=== PATIENT | female | born 1955 | race Caucasian/White ===

== ENCOUNTER 2021-01-28 08:06 | Outpatient (CLI) | payer OTHER, SELFPAY ==
--- NOTE | ~2021-01-28 | MM_ITS ---
EXAMINATION: MM screening sam BI w mariann HISTORY: Screening TECHNIQUE: Craniocaudal and mediolateral oblique 3-D tomosynthesis images were obtained and synthetic 2-D images were generated. CAD analysis was submitted and interpreted. COMPARISON: Comparison to multiple prior studies sequentially, with oldest reviewed study dated 09/25. BREAST PARENCHYMAL COMPOSITION: The breasts are heterogeneously dense, which may obscure small masses . FINDINGS: There is no evidence of suspicious mass, calcification, or architectural distortion to sugg est malignancy in either breast. There has been no suspicious interval change. IMPRESSION: 1. No mammographic evidence of malignancy. 2. Recommend routine screening mammography in one year. BI-RADS Category 1: Negative Reviewed, dictated and finalized at location A.
== END 2021-01-28 08:07 | disposition home or self-care (01) ==
LOC: ANHIMG 08:10
PROVIDERS: PCP Physician Assistant; Visit Provider Obstetrics & Gynecology Gynecology
DX: Z12.31 Encounter for screening mammogram for malignant neoplasm of breast (principal)
CPT/HCPCS: 77063; 77067

== ENCOUNTER 2023-06-07 07:00 | Outpatient (NON) | payer OTHER, SELFPAY | END 2023-06-07 07:01 | disposition home or self-care (01) | LOC: ANHLAB 06-08 12:52 | PROVIDERS: PCP Physician Assistant; Visit Provider Nurse Practitioner | DX: L57.0 Actinic keratosis (principal) | CPT/HCPCS: 88305 ==

== ENCOUNTER 2024-10-18 12:42 | Outpatient (CLI) | payer MEDICARE, SELFPAY ==
--- NOTE | ~2024-10-18 | MM_ITS ---
EXAMINATION: MM screening sam BI w mariann HISTORY: Screening TECHNIQUE: Craniocaudal and mediolateral oblique 3-D tomosynthesis images were obtained and synthetic 2-D images were generated. CAD analysis was submitted and interpreted. COMPARISON: Comparison to multiple prior studies sequentially, with oldest reviewed study dated 05/2017. BREAST PARENCHYMAL COMPOSITION: Not dense: There are scattered areas of fibroglandular density. FINDINGS: There are developing asymmetries in the upper outer quadrant of the left breast. The right breast is stable without evidence for malignancy. IMPRESSION: 1. Developing left breast asymmetries in the upper outer quadrant, posterior third. 2. Additional mammographic views and possible breast ultrasound are recommended. BI-RADS Category 0: Incomplete: Needs additional imaging evaluation. Reviewed, dictated and finalized at location B. EQUIPMENT SERVICE TECHNICIAN IMPRESSION: 1. Developing left breast asymmetries in the upper outer quadrant, posterior th ird. 2. Additional mammographic views and possible breast ultrasound are recommended . BI-RADS Category 0: Incomplete: Needs additional imaging evaluation.
== END 2024-10-18 12:43 | disposition home or self-care (01) ==
LOC: MICIMG 12:43
PROVIDERS: PCP Physician Assistant; Visit Provider Physician Assistant
DX: Z12.31 Encounter for screening mammogram for malignant neoplasm of breast (principal); R92.8 Other abnormal and inconclusive findings on diagnostic imaging of breast
CPT/HCPCS: 77063; 77067

== ENCOUNTER → 2024-10-23 15:31 | Outpatient (REF) | payer MEDICARE, SELFPAY ==
--- OUTSIDE RECORDS SUMMARY | 2024-10-23 16:08 | XMS_ITS | Clinical Summary ---
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 Gender Identity Not on file Sexual Orientation Not on file Plan of Treatment Health Maintenance Due Date Last Done Comments DEXA Bone Density 1955 Hepatitis C Virus (HCV) Screening 1955 TdaP Immunization 1955 Colonoscopy 2001 Colorectal Cancer Screening 2001 Cologuard 2006 Immunochemical Fecal Occult Blood 2006 Mammogram 2006 Pneumococcal Immunization (5 0+ years) (1 of 1 - PCV) 2006 Zoster Immunization (1 of 2) 2006 Influenza Immunization (#1) 2024 SARS-COV-2 Immunization ( season) 2024 Respiratory Syncytial Virus (RSV) Immunization (Adult) (1 - 1-dose 75+ series) 2031 Hepatitis B Immunization Aged Out No longer eligible based on patient's age to complete this topic Meningococcal Immunization (ACWY) Aged Out No longer eligible based on patient's age to complete this topic Rotavirus Immunization Aged Out No lo nger eligible based on patient's age to complete this topic
== END ==
LOC: ANHLAB 15:31
PROVIDERS: PCP Physician Assistant; Visit Provider Plastic Surgery
DX: D48.5 Neoplasm of uncertain behavior of skin (principal)
CPT/HCPCS: 88305

== ENCOUNTER 2024-11-15 10:49 | Outpatient (CLI) | payer MEDICARE, SELFPAY ==
--- NOTE | ~2024-11-15 | MM_ITS ---
EXAMINATION: MM diagnostic sam LT w mariann HISTORY: Left breast asymmetry TECHNIQUE: Additional 3-D tomosynthesis images of the left breast were performed and synthetic 2-D im ages were generated. CAD analysis was submitted and interpreted. COMPARISON: 10/18/2024, 01/28/2021 BREAST PARENCHYMAL COMPOSITION:Not Dense. There are scattered areas of fibroglandular density. FINDINGS: Left breast asymmetry effaces with spot compression. No persistent mass lesion or distortio n. IMPRESSION: No mammographic evidence for malignancy. BI-RADS Category 1: Negative Reviewed, dictated and finalized at location . ORY FOCUS TECHNICIAN
--- OUTSIDE RECORDS SUMMARY | 2024-11-15 12:28 | XMS_ITS | Data Portability ---
Author Organization [facility] Address [address] [address] Care Team Providers Care Armature Inspector Name Role Phone MAXIM MOJICA Primary Care Provider Unavailab le Assessment No assessment recorded. Plan of Treatment Reminders Order Date Submit Date Provider Last Modified By Organization Details Last Modified Time Details Appointments None recorded. Lab lipid panel, serum 2023 024 VILMA Tobias, [address], [place], [address], 4 09:08:25 CBC w/ auto diff 2023 024 VILMA Tobias, [address], [place], [address], 4 09:08:28 hepatic function panel, serum 2023 024 VILMA Tobias, [address], [place], [address], 4 09:08:26 BMP, serum or plasma 2023 024 VILMA Tobias, [address], [place], [address], 4 09:08:27 TSH + free T4, serum 2023 024 VILMA Tobias, [address], [place], [address], 4 09:08:23 Referral None recorded. Procedures colonoscop y procedure (PROC) - Previous Dr. Viki wu patient 2023 024 [facility], [address], [address], [place], [address], 4 17:45:24 Surgeries None recorded. Imaging MAMMO, screening, digital, bilateral 2023 024 [email or web address] [facility], [address], [place], [address], 5 14:05:08 Medication Orders None recorded. Patient TargetsNo targets recorded. Patient InstructionsNo instructions recorded. Reason for Referral None Reported. Results Created Date Observation Date Name Description Value Unit Range Abnormal Flag Note LastModifiedBy Organization Detail LastModifiedTime 08/27/2008/28/2024 TSH+F REE T4 TSH 2.080 uIU/m L 0.450- 4.500 Not Available [facility] ([facility]) [address] [place], [address], 08/28/2024 09:08:23 08/27/20 24 08/28/2024 TSH+F REE T4 T4,free(dire ct) 1.13 NG/dL 0.82-1 .77 Not Available [facility] ([facility]) [address] [place], [address], 08/28/2024 09:08:23 08/27/20 24 08/28/2024 LIPID PANEL cholesterol, total 274 mg/dL 100-19 9 above high normal Not Available [facility] ([facility]) [address] [place], [address], 08/28/2024 09:08:25 08/27/20 24 08/28/2024 LIPID PANEL triglyceride s 93 mg/dL 0-149 Not Available [facility] ([facility]) [address] [place], [address], 08/28/2024 09:08:25 08/27/20 24 08/28/2024 LIPID PANEL HDL cholesterol 84 mg/dL >39 Not Available [facility] ([facility]) [address] [place], [address], 08/28/2024 09:08:25 08/27/20 24 08/28/2024 LIPID PANEL VLDL cholesterol riddhi 16 mg/dL 5-40 Not Available [facility] ([facility]) [address] [place], [address], 08/28/2024 09:08:25 08/27/20 24 08/28/2024 LIPID PANEL LDL chol calc ([facility]) 174 mg/dL 0-99 above high normal Not Available [facility] ([facility]) [address] [place], [address], 08/28/2024 09:08:25 08/27/20 24 08/28/2024 HEPAT IC FUNCT ION PANEL (7) protein, total 7.1 g/dL 6.0-8. 5 Not Available [facility] ([facility]) [address] [place], [address], 08/28/2024 09:08:26 08/27/20 24 08/28/2024 HEPAT IC FUNCT ION PANEL (7) albumin 4.2 g/dL 3.9-4. 9 Not Available [facility] ([facility]) [address] [place], [address], 08/28/2024 09:08:26 08/27/20 24 08/28/2024 HEPAT IC FUNCT ION PANEL (7) bilirubin, total 0.3 mg/dL 0.0-1. 2 Not Available [facility] ([facility]) [address] [place], [address], 08/28/2024 09:08:26 08/27/20 24 08/28/2024 HEPAT IC FUNCT ION PANEL (7) bilirubin, direct 0.12 mg/dL 0.00-0 .40 Not Available [facility] ([facility]) [address] [facility] [place], [address], 08/28/2024 09:08:26 08/27/20 24 08/28/2024 HEPAT IC FUNCT ION PANEL (7) alkaline phosphatase 97 IU/L 44-121 Not Available [facility] ([facility]) [address] [facility] [place], [address], 08/28/2024 09:08:26 08/27/20 24 08/28/2024 HEPAT IC FUNCT ION PANEL (7) AST (SGOT) 23 IU/L 0-40 Not Available [facility] ([facility]) [address] [facility] [place], [address], 08/28/2024 09:08:26 08/27/20 24 08/28/2024 HEPAT IC FUNCT ION PANEL (7) ALT (SGPT) 17 IU/L 0-32 Not Available [facility] ([facility]) [address] [facility] [place], [address], 08/28/2024 09:08:26 08/27/20 24 08/28/2024 BMP7+ EGFR glucose 94 mg/dL 70-99 Not Available [facility] ([facility]) [address] [facility] [place], [address], 08/28/2024 09:08:27 08/27/20 24 08/28/2024 BMP7+ EGFR BUN 11 mg/dL 8-27 Not Available [facility] ([facility]) [address] [facility] [place], [address], 08/28/2024 09:08:27 08/27/20 24 08/28/2024 BMP7+ EGFR creatinine 0.71 mg/dL 0.57-1 .00 Not Available [facility] ([facility]) [address] [facility] [place], [address], 08/28/2024 09:08:27 08/27/20 24 08/28/2024 BMP7+ EGFR eGFR 93 mL/mi n/1.7 3 >59 Not Available [facility] ([facility]) [address] [facility] [place], [address], 08/28/2024 09:08:27 08/27/20 24 08/28/2024 BMP7+ EGFR sodium 141 mmol/ L 134-14 4 Not Available [facility] ([facility]) [address] [facility] [place], [address], 08/28/2024 09:08:27 08/27/20 24 08/28/2024 BMP7+ EGFR potassium 4.4 mmol/ L 3.5-5. 2 Not Available [facility] ([facility]) [address] [place], [address], 08/28/2024 09:08:27 08/27/20 24 08/28/2024 BMP7+ EGFR chloride 101 mmol/ L 96-106 Not Available [facility] ([facility]) [address] [facility] [place], [address], 08/28/2024 09:08:27 08/27/20 24 08/28/2024 BMP7+ EGFR carbon dioxide, total 26 mmol/ L 20-29 Not Available [facility] ([facility]) [address] [place], [address], 08/28/2024 09:08:27 08/27/20 24 08/28/2024 CBC WITH DIFFE RENTI AL/PL ATELE T WBC 5.6 x10e3 /uL 3.4-10 .8 Not Available [facility] ([facility]) [address] [place], [address], 08/28/2024 09:08:28 08/27/20 24 08/28/2024 CBC WITH DIFFE RENTI AL/PL ATELE T RBC 4.25 x10e6 /uL 3.77-5 .28 Not Available [facility] ([facility]) [address] [facility], [place], [address], 08/28/2024 09:08:28 08/27/20 24 08/28/2024 CBC WITH DIFFE RENTI AL/PL ATELE T hemoglobin 14.3 g/dL 11.1-1 5.9 Not Available [facility] ([facility]) [address] [facility] [place], [address], 08/28/2024 09:08:28 08/27/20 24 08/28/2024 CBC WITH DIFFE RENTI AL/PL ATELE T hematocrit 42.2 % 34.0-4 6.6 Not Available [facility] ([facility]) [address] [facility], [place], [address], 08/28/2024 09:08:28 08/27/20 24 08/28/2024 CBC WITH DIFFE RENTI AL/PL ATELE T MCV 99 fL 79-97 above high normal Not Available [facility] ([facility]) [address] [place], [address], 08/28/2024 09:08:28 08/27/20 24 08/28/2024 CBC WITH DIFFE RENTI AL/PL ATELE T MCH 33.6 pg 26.6-3 3.0 above high normal Not Available [facility] ([facility]) [address] [place], [address], 08/28/2024 09:08:28 08/27/20 24 08/28/2024 CBC WITH DIFFE RENTI AL/PL ATELE T MCHC 33.9 g/dL 31.5-3 5.7 Not Available [facility] ([facility]) [address] [place], [address], 08/28/2024 09:08:28 08/27/20 24 08/28/2024 CBC WITH DIFFE RENTI AL/PL ATELE T RDW 11.2 % 11.7-1 5.4 below low normal Not Available [facility] ([facility]) [address] [facility], [place], [address], 08/28/2024 09:08:28 08/27/20 24 08/28/2024 CBC WITH DIFFE RENTI AL/PL ATELE T platelets 290 x10e3 /uL 150-45 0 Not Available [facility] ([facility]) [address] [facility], [place], [address], 08/28/2024 09:08:28 08/27/20 24 08/28/2024 CBC WITH DIFFE RENTI AL/PL ATELE T neutrophils 42 % notest ab. Not Available [facility] ([facility]) [address] [facility], [place], [address], 08/28/2024 09:08:28 08/27/20 24 08/28/2024 CBC WITH DIFFE RENTI AL/PL ATELE T lymphs 44 % notest ab. Not Available [facility] ([facility]) [address] [facility], [place], [address], 08/28/2024 09:08:28 08/27/20 24 08/28/2024 CBC WITH DIFFE RENTI AL/PL ATELE T monocytes 11 % notest ab. Not Available [facility] ([facility]) [address] [facility], [place], [address], 08/28/2024 09:08:28 08/27/20 24 08/28/2024 CBC WITH DIFFE RENTI AL/PL ATELE T eos 3 % notest ab. Not Available [facility] ([facility]) [address] [place], [address], 08/28/2024 09:08:28 08/27/20 24 08/28/2024 CBC WITH DIFFE RENTI AL/PL ATELE T basos 0 % notest ab. Not Available [facility] ([facility]) [address] [place], [address], 08/28/2024 09:08:28 08/27/20 24 08/28/2024 CBC WITH DIFFE RENTI AL/PL ATELE T neutrophils (absolute) 2.4 x10e3 /uL 1.4-7. 0 Not Available [facility] ([facility]) [address] [facility], [place], [address], 08/28/2024 09:08:28 08/27/20 24 08/28/2024 CBC WITH DIFFE RENTI AL/PL ATELE T lymphs (absolute) 2.5 x10e3 /uL 0.7-3. 1 Not Available [facility] ([facility]) [address] [place], [address], 08/28/2024 09:08:28 08/27/20 24 08/28/2024 CBC WITH DIFFE RENTI AL/PL ATELE T monocytes(ab solute) 0.6 x10e3 /uL 0.1-0. 9 Not Available [facility] ([facility]) [address] [place], [address], 08/28/2024 09:08:28 08/27/20 24 08/28/2024 CBC WITH DIFFE RENTI AL/PL ATELE T eos (absolute) 0.2 x10e3 /uL 0.0-0. 4 Not Available [facility] ([facility]) [address] [place], [address], 08/28/2024 09:08:28 08/27/20 24 08/28/2024 CBC WITH DIFFE RENTI AL/PL ATELE T baso (absolute) 0.0 x10e3 /uL 0.0-0. 2 Not Available [facility] ([facility]) [address] [place], [address], 08/28/2024 09:08:28 08/27/20 24 08/28/2024 CBC WITH DIFFE RENTI AL/PL ATELE T immature granulocytes 0 % notest ab. Not Available [facility] ([facility]) [address] [facility], [place], [address], 08/28/2024 09:08:28 08/27/20 24 08/28/2024 CBC WITH DIFFE RENTI AL/PL ATELE T immature grans (abs) 0.0 x10e3 /uL 0.0-0. 1 Not Available [facility] ([facility]) [address] [facility], [place], [address], 08/28/2024 09:08:28 10/18/19 25 10/18/2024 MAMMO , scree lu, digit al, bilat eral No observ ation record ed. [facility] [address], [place], [address], 10/23/2024 17:10:05 11/16/19 25 11/15/2024 imagi ng/di agnos tic resul t No observ ation record ed. [facility] [address], [place], [address], 11/15/2024 13:22:45 Result Notes None recorded. Problems Name Problem SNOMED Code Status Onset Date Resolution Date Notes Provider Name and Address Organization Details Recorded Time Body mass index 20-24 - normal 274849677 Active 024 Gunner Jackson MA null, [place] [facility] [place] 4 11:47:26 History of polyp of colon 839767052 Active 024 EVE Carlin Attn: Accounting ,[address] [facility] [address], [place], [address] , [facility] 4 12:13:42 Problem Notes None recorded. Procedures Surgical History Date Name Laterality Status Provider Name and Address Organization Details Recorded Time Joint Replacement completed Gunner Jackson [place] [facility] [place] 08/20/2024 12:45:57 Imaging Results Imaging Date Name Status LastModified by Organiz ation Details LastModified Time 10/18/2024 MAMMO, screening, digital, bilateral completed [facility] [address], [place], [address], 10/23/2024 17:10:05 11/15/2024 imaging/diagno stic result active [facility] [address], [place], [address], 11/15/2024 13:22:45 Procedure Notes None recorded. Medical Equipment None Reported. Allergies No known drug allergies Medications Name Sig Start Date Stop Date Status Note LastModified by Organization Details LastModified Time rosuvastatin 10 mg tablet TAKE 1 TABLET BY MOUTH EVERY DAY IN THE EVENING active Not Available Not Available No t Available Multi Vitamin active Not Available Not Available Not Available Vitals Date Recorded Body weight Respiratory rate Body mass index (BMI) Body height Oxygen saturation Oxygen saturation in Arterial blood by Pulse oximetry Heart rate Systolic blood pressure Diastolic blood pressure Provider Name and Address Organization Details Last Updated DateTime 4 57656.9 3 g 18 /min 23.3 kg/m2 165.1 cm 97 % 97 % 68 /min 132 mm[Hg] 82 mm[Hg] Gunner Jackson MA [facility] 11:48:59 Date Recorded Systolic blood pressure Diastolic blood pressure Provider Name and Address Organization Details Last Updated DateTime 08/20/2024 140 mm[Hg] 90 mm[Hg] EVE Carlin Attn: Accounting,[address] [place], [address], [facility] 08/20/2024 12:19:07 Social History Question Answer Notes LastModified by Organizat ion Details LastModified Time Tobacco Smoking Status Former Smoker Gunner Jackson MA null, [facility] 08/20/2024 12:46:41 Do You Have An Advance Directive? No Will Information not available 08/20/2024 What Is Your Level Of Alcohol Consumption? Occasional Wine Information not available 08/20/2024 Are You Blind Or Do You Have Difficulty Seeing? No Glasses Information not available 08/20/2024 What Is Your Level Of Caffeine Consumption? Occasional Coffee Information not available 08/20/2024 In The 14 Days Before Symptom Onset, Have You Had Close Contact With A Laboratory-confir med COVID-19 While That Case Was Ill? No Information not available 08/20/2024 In The 14 Days Before Symptom Onset, Have You Had Close Contact With A Person Who Is Under Investigation For COVID-19 While That Person Was Ill? No Information not available 08/20/2024 Have You Been To An Area Known To Be High Risk For COVID-19? No Information not available 08/20/2024 Are You Deaf Or Do You Have Serious Difficulty Hearing? No Information not available 08/20/2024 What Type Of Diet Are You Following? REGULAR Information not available 08/20/2024 Are There Any Guns Present In Your Home? No Information not available 08/20/2024 What Was The Date Of Your Most Recent Tobacco Screening? 08/20/2024 Information not available 08/20/2024 What Is Your Current Pack Years? 10-19packyears Information not available 08/20/2024 What Is Your Relationship Status? Information not available 08/20/2024 Do You Use Your Seat Belt Or Car Seat Routinely? Yes Information not available 08/20/2024 Do You Have Smoke And Carbon Monoxide Detectors In Your Home? Yes Information not available 08/20/2024 How Much Tobacco Do You Smoke? No Information not available 08/20/2024 Do You Feel Stressed (tense, Restless, Nervous, Or Anxious, Or Unable To Sleep At Night)? [id number] Information not available 08/20/2024 Do You Use Any Illicit Or Recreational Drugs? No Information not available 08/20/2024 Do You Use Sunscreen Routinely? Yes Information not available 08/20/2024 Has Tobacco Cessation Counseling Been Provided? No Information not available 08/20/2024 Do You Or Have You Ever Used Any Other Forms Of Tobacco Or Nicotine? No Information not available 08/20/2024 Sex: Female Functional Status Question Answer Note LastModified by Organizat ion Details LastModified Time Are you able to care for yourself? Yes Information not available 08/20/2024 What is your exercise level? Occasional at home/walki ng Information not available 08/20/2024 Mental Status None recorded. Family History Relationship Description Onset Age of this Age Resolved Age Notes LastModified by Organization Details LastModified Time Mother Family history of breast cancer tcarterma Not available 2023 12:46:09 Brother Heart disease tcarterma Not available 2023 12:46:14 Father Hypertensive disorder tcarterma Not available 2023 12:46:20 Father Hypercholest erolemia tcarterma Not available 2023 12:46:25 Medical History Condition Response Coronary Artery Disease N Other N High Blood Pressure N Atrial Fibrillation N Kidney or Bladder Problems N Thyroid Problems N GI Problems N Depression N COPD N Blood Clots N Have you had a mammogram in the last yea r? N Skin Problems N Anemia N Heart Attack (MT) N Anxiety Disorder N Diabetes N Muscle, Joint, or Bone Problems N Seizures/Epilepsy N Have you had a colonoscopy in the last 1 0 years? N Acid Reflux (GERD) N Cancer N Stroke N Asthma N Allergies N Have you had a PSA blood test in the las t year? N High Cholesterol N Hepatitis N Liver Disease N Headaches N Heart Failure N Osteoporosis N Gynecological HistoryNo gynecological history recorded. Obstetrics History GPAL:G 0 P 0 0 0 0 Past Encounters Encounter ID Performer Location Encounter Start Date Encounter Closed Date Diagnosis/Indication Diagnosis SNOMED-CT Code Diagnosis ICD10 Code Diagnosis Note [id number] EVE Carlin [facility] [place], [place] [address] [place] [address] 08/20/2024 11:24:47 08/20/2024 13:02:47 Body mass index 20-24 - normal 051778745 Z68.23 BMI is 23.3 Viral uppe r respiratory tract infection 007755767 J06.9 Supportive care no new orders patient's exam is stable without acute concern Adult [facility] th examination 462642491 Z00.01 Annual wellness exam completed Cholesterol screening 27 4302793 Z13.220 Fasting lipid panel is due Long-term drug therapy 574310546 Z79.891 All routine lab work is ordered fasting Screening mammography 24 884857 Z12.31 Annual mammogram due History of polyp of colon 593405754 Z86.0100 Order for colonoscop y given history of colon polyp and due for follow-up scope. Health Concerns Section Related Observation LastModified by Organization Detai ls LastModified Time None Recorded Concern Status LastModified by Organization Details LastModified Time None Recorded Advance Directives Directive N: will Payers Encounter Date Sequence Insurance Name Policy Number Policy Nash Covered Member ID Nash Member ID Guarantor Name 08/20/2024 1 [employer] - [employer] (MEDICARE REPLACEMENT/ ADVANTAGE - HMO) [id number] Idania Medrano [id number] Idania Medrano Notes Date Note Type Note Provider Name and Address Organization Details Recorded Time 08/20/2024 text/html Patient is here for her annual wellness exam reestablishing with healthcare provider at [facility] office. She also happens to have some residual upper respiratory symptoms from a recent virus that she is improving from. She is interested in updated labs as well as a mammogram and she is due for a colonoscopy. She has a history of colon polyp. EVE Carlin Attn: Accounting,[address] [facility], [place], [address], [facility] 09/07/2024 21:57:06 OBGyn Episode No OBEpisode recorded.
--- OUTSIDE RECORDS SUMMARY | 2024-11-15 12:28 | XMS_ITS | Clinical Summary ---
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
== END 2024-11-15 10:50 | disposition home or self-care (01) ==
PROVIDERS: PCP Physician Assistant; Visit Provider Physician Assistant
DX: R92.8 Other abnormal and inconclusive findings on diagnostic imaging of breast (principal)
CPT/HCPCS: 77061; 77065; G0279

== ENCOUNTER 2025-01-28 06:22 | Day surgery (SDC) | payer MEDICARE, SELFPAY ==
[2024-08-23 14:02] VITALS: BMI 24.0
[2025-01-10 09:40] VITALS: BMI 22.4
--- OUTSIDE RECORDS SUMMARY | 2025-01-28 06:26 | XMS_ITS | Clinical Summary ---
Author Organization 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
--- OUTSIDE RECORDS SUMMARY | 2025-01-28 06:26 | XMS_ITS | Data Portability ---
[facility] Address [address] [facility] [place] [address] Care Team Providers Care Capacity Planning Analyst Name Role Phone MAXIM MOJICA Primary Care Provider Unavailab le Assessment No assessment recorded. Plan of Treatment Reminders Order Date Submit Date Provider Last Modified By Organization Details Last Modified Time Details Appointments None recorded. Lab lipid panel, serum 2023 024 VILMA Tobias, [address], [place], [address], 4 09:08:25 CBC w/ auto diff 2023 024 VILMA Tobias, [address], [place], [address], 4 09:08:28 hepatic function panel, serum 2023 024 VILMA Tobias, [address], [place], [address], 4 09:08:26 BMP, serum or plasma 2023 024 VILMA Tobias, [address], [place], [address], 4 09:08:27 TSH + free T4, serum 2023 024 VILMA Tobias, [address], [place], [address], 4 09:08:23 Referral None recorded. Procedures colonoscopy procedure (PROC) - Previous Dr. Carvalho patient 2023 024 [facility], [address], [address], [place], [address], 5 04:07:01 Surgeries None recorded. Imaging MAMMO, screening, digital, bilateral 2023 024 [email or web address] [facility], [address], [place], [address], 5 14:05:08 Medication Orders None recorded. Patient TargetsNo targets recorded. Patient InstructionsNo instructions recorded. Reason for Referral None Reported. Results Created Date Observation Date Name Description Value Unit Range Abnormal Flag Note LastModifiedBy Organization Detail LastModifiedTime 08/27/2008/28/2024 TSH+F REE T4 TSH 2.080 uIU/m L 0.450- 4.500 Not Available [facility] ([facility]) [address] [place], [address], 08/28/2024 09:08:23 08/27/20 24 08/28/2024 TSH+F REE T4 T4,free(dire ct) 1.13 NG/dL 0.82-1 .77 Not Available [facility] ([facility]) [address] [place], [address], 08/28/2024 09:08:23 08/27/20 24 08/28/2024 LIPID PANEL cholesterol, total 274 mg/dL 100-19 9 above high normal Not Available [facility] ([facility]) [address] [place], [address], 08/28/2024 09:08:25 08/27/20 24 08/28/2024 LIPID PANEL triglyceride s 93 mg/dL 0-149 Not Available [facility] ([facility]) [address] [place], [address], 08/28/2024 09:08:25 08/27/20 24 08/28/2024 LIPID PANEL HDL cholesterol 84 mg/dL >39 Not Available [facility] ([facility]) [address] [place], [address], 08/28/2024 09:08:25 08/27/20 24 08/28/2024 LIPID PANEL VLDL cholesterol riddhi 16 mg/dL 5-40 Not Available [facility] ([facility]) [address] [place], [address], 08/28/2024 09:08:25 08/27/20 24 08/28/2024 LIPID PANEL LDL chol calc ([facility]) 174 mg/dL 0-99 above high normal Not Available [facility] ([facility]) [address] [place], [address], 08/28/2024 09:08:25 08/27/20 24 08/28/2024 HEPAT IC FUNCT ION PANEL (7) protein, total 7.1 g/dL 6.0-8. 5 Not Available [facility] ([facility]) [address] [place], [address], 08/28/2024 09:08:26 08/27/20 24 08/28/2024 HEPAT IC FUNCT ION PANEL (7) albumin 4.2 g/dL 3.9-4. 9 Not Available [facility] ([facility]) [address] [place], [address], 08/28/2024 09:08:26 08/27/20 24 08/28/2024 HEPAT IC FUNCT ION PANEL (7) bilirubin, total 0.3 mg/dL 0.0-1. 2 Not Available [facility] ([facility]) [address] [place], [address], 08/28/2024 09:08:26 08/27/20 24 08/28/2024 HEPAT IC FUNCT ION PANEL (7) bilirubin, direct 0.12 mg/dL 0.00-0 .40 Not Available [facility] ([facility]) [address] [facility], [address], 08/28/2024 09:08:26 08/27/20 24 08/28/2024 HEPAT IC FUNCT ION PANEL (7) alkaline phosphatase 97 IU/L 44-121 Not Available [facility] ([facility]) [address] [place], [address], 08/28/2024 09:08:26 08/27/20 24 08/28/2024 HEPAT IC FUNCT ION PANEL (7) AST (SGOT) 23 IU/L 0-40 Not Available [facility] ([facility]) [address] [facility], [address], 08/28/2024 09:08:26 08/27/20 24 08/28/2024 HEPAT IC FUNCT ION PANEL (7) ALT (SGPT) 17 IU/L 0-32 Not Available [facility] ([facility]) [address] [place], [address], 08/28/2024 09:08:26 08/27/20 24 08/28/2024 BMP7+ EGFR glucose 94 mg/dL 70-99 Not Available [facility] ([facility]) [address] [place], [address], 08/28/2024 09:08:27 08/27/20 24 08/28/2024 BMP7+ EGFR BUN 11 mg/dL 8-27 Not Available [facility] ([facility]) [address] [place], [address], 08/28/2024 09:08:27 08/27/20 24 08/28/2024 BMP7+ EGFR creatinine 0.71 mg/dL 0.57-1 .00 Not Available [facility] ([facility]) [address] [place], [address], 08/28/2024 09:08:27 08/27/20 24 08/28/2024 BMP7+ EGFR eGFR 93 mL/mi n/1.7 3 >59 Not Available [facility] ([facility]) [address] [facility], [place], [address], 08/28/2024 09:08:27 08/27/20 24 08/28/2024 BMP7+ EGFR sodium 141 mmol/ L 134-14 4 Not Available [facility] ([facility]) [address] [facility], [place], [address], 08/28/2024 09:08:27 08/27/20 24 08/28/2024 BMP7+ EGFR potassium 4.4 mmol/ L 3.5-5. 2 Not Available [facility] ([facility]) [address] [facility], [place], [address], 08/28/2024 09:08:27 08/27/20 24 08/28/2024 BMP7+ EGFR chloride 101 mmol/ L 96-106 Not Available [facility] ([facility]) [address] [facility], [place], [address], 08/28/2024 09:08:27 08/27/20 24 08/28/2024 BMP7+ EGFR carbon dioxide, total 26 mmol/ L 20-29 Not Available [facility] ([facility]) [address] [facility], [place], [address], 08/28/2024 09:08:27 08/27/20 24 08/28/2024 CBC WITH DIFFE RENTI AL/PL ATELE T WBC 5.6 x10e3 /uL 3.4-10 .8 Not Available [facility] ([facility]) [address] [facility], [place], [address], 08/28/2024 09:08:28 08/27/20 24 08/28/2024 CBC WITH DIFFE RENTI AL/PL ATELE T RBC 4.25 x10e6 /uL 3.77-5 .28 Not Available [facility] ([facility]) [address] [facility], [place], [address], 08/28/2024 09:08:28 08/27/20 24 08/28/2024 CBC WITH DIFFE RENTI AL/PL ATELE T hemoglobin 14.3 g/dL 11.1-1 5.9 Not Available [facility] ([facility]) [address] [facility], [place], [address], 08/28/2024 09:08:28 08/27/20 24 08/28/2024 CBC WITH DIFFE RENTI AL/PL ATELE T hematocrit 42.2 % 34.0-4 6.6 Not Available [facility] ([facility]) [address] [facility], [place], [address], 08/28/2024 09:08:28 08/27/20 24 08/28/2024 CBC WITH DIFFE RENTI AL/PL ATELE T MCV 99 fL 79-97 above high normal Not Available [facility] ([facility]) [address] [place], [address], 08/28/2024 09:08:28 08/27/20 24 08/28/2024 CBC WITH DIFFE RENTI AL/PL ATELE T MCH 33.6 pg 26.6-3 3.0 above high normal Not Available [facility] ([facility]) [address] [place], [address], 08/28/2024 09:08:28 08/27/20 24 08/28/2024 CBC WITH DIFFE RENTI AL/PL ATELE T MCHC 33.9 g/dL 31.5-3 5.7 Not Available [facility] ([facility]) [address] [place], [address], 08/28/2024 09:08:28 08/27/20 24 08/28/2024 CBC WITH DIFFE RENTI AL/PL ATELE T RDW 11.2 % 11.7-1 5.4 below low normal Not Available [facility] ([facility]) [address] [facility], [place], [address], 08/28/2024 09:08:28 08/27/20 24 08/28/2024 CBC WITH DIFFE RENTI AL/PL ATELE T platelets 290 x10e3 /uL 150-45 0 Not Available [facility] ([facility]) [address] [facility], [place], [address], 08/28/2024 09:08:28 08/27/20 24 08/28/2024 CBC WITH DIFFE RENTI AL/PL ATELE T neutrophils 42 % notest ab. Not Available [facility] ([facility]) [address] [facility], [place], [address], 08/28/2024 09:08:28 08/27/20 24 08/28/2024 CBC WITH DIFFE RENTI AL/PL ATELE T lymphs 44 % notest ab. Not Available [facility] ([facility]) [address] [facility], [place], [address], 08/28/2024 09:08:28 08/27/20 24 08/28/2024 CBC WITH DIFFE RENTI AL/PL ATELE T monocytes 11 % notest ab. Not Available [facility] ([facility]) [address] [facility], [place], [address], 08/28/2024 09:08:28 08/27/20 24 08/28/2024 CBC WITH DIFFE RENTI AL/PL ATELE T eos 3 % notest ab. Not Available [facility] ([facility]) [address] [facility], [place], [address], 08/28/2024 09:08:28 08/27/20 24 08/28/2024 CBC WITH DIFFE RENTI AL/PL ATELE T basos 0 % notest ab. Not Available [facility] ([facility]) [address] [facility], [place], [address], 08/28/2024 09:08:28 08/27/20 24 08/28/2024 CBC WITH DIFFE RENTI AL/PL ATELE T neutrophils (absolute) 2.4 x10e3 /uL 1.4-7. 0 Not Available [facility] ([facility]) [address] [facility], [place], [address], 08/28/2024 09:08:28 08/27/20 24 08/28/2024 CBC WITH DIFFE RENTI AL/PL ATELE T lymphs (absolute) 2.5 x10e3 /uL 0.7-3. 1 Not Available [facility] ([facility]) [address] [place], [address], 08/28/2024 09:08:28 08/27/20 24 08/28/2024 CBC WITH DIFFE RENTI AL/PL ATELE T monocytes(ab solute) 0.6 x10e3 /uL 0.1-0. 9 Not Available [facility] ([facility]) [address] [place], [address], 08/28/2024 09:08:28 08/27/20 24 08/28/2024 CBC WITH DIFFE RENTI AL/PL ATELE T eos (absolute) 0.2 x10e3 /uL 0.0-0. 4 Not Available [facility] ([facility]) [address] [place], [address], 08/28/2024 09:08:28 08/27/20 24 08/28/2024 CBC WITH DIFFE RENTI AL/PL ATELE T baso (absolute) 0.0 x10e3 /uL 0.0-0. 2 Not Available [facility] ([facility]) [address] [place], [address], 08/28/2024 09:08:28 08/27/20 24 08/28/2024 CBC WITH DIFFE RENTI AL/PL ATELE T immature granulocytes 0 % notest ab. Not Available [facility] ([facility]) [address] [facility], [place], [address], 08/28/2024 09:08:28 08/27/20 24 08/28/2024 CBC WITH DIFFE RENTI AL/PL ATELE T immature grans (abs) 0.0 x10e3 /uL 0.0-0. 1 Not Available [facility] ([facility]) [address] [facility], [place], [address], 08/28/2024 09:08:28 12/19/19 25 12/19/2024 HEPAT IC FUNCT ION PANEL (7) protein, total 7.5 g/dL 6.0-8. 5 Not Available [facility] ([facility]) [address] [facility], [place], [address], 12/19/2024 07:12:59 12/19/19 25 12/19/2024 HEPAT IC FUNCT ION PANEL (7) albumin 4.5 g/dL 3.9-4. 9 Not Available [facility] ([facility]) [address] [place], [address], 12/19/2024 07:12:59 12/19/19 25 12/19/2024 HEPAT IC FUNCT ION PANEL (7) bilirubin, total 0.5 mg/dL 0.0-1. 2 Not Available [facility] ([facility]) [address] [place], [address], 12/19/2024 07:12:59 12/19/19 25 12/19/2024 HEPAT IC FUNCT ION PANEL (7) bilirubin, direct 0.16 mg/dL 0.00-0 .40 Not Available [facility] ([facility]) [address] [facility], [place], [address], 12/19/2024 07:12:59 12/19/19 25 12/19/2024 HEPAT IC FUNCT ION PANEL (7) alkaline phosphatase 88 IU/L 44-121 Not Available [facility] ([facility]) [address] [place], [address], 12/19/2024 07:12:59 12/19/19 25 12/19/2024 HEPAT IC FUNCT ION PANEL (7) AST (SGOT) 23 IU/L 0-40 Not Available [facility] ([facility]) [address] [place], [address], 12/19/2024 07:12:59 12/19/19 25 12/19/2024 HEPAT IC FUNCT ION PANEL (7) ALT (SGPT) 17 IU/L 0-32 Not Available [facility] ([facility]) [address] [place], [address], 12/19/2024 07:12:59 12/19/19 25 12/19/2024 LIPID CASCA DE cholesterol, total 239 mg/dL 100-19 9 above high normal Not Available [facility] ([facility]) [address] [place], [address], 12/19/2024 07:13:00 12/19/19 25 12/19/2024 LIPID CASCA DE HDL cholesterol 84 mg/dL >39 Not Available [facility] ([facility]) [address] [place], [address], 12/19/2024 07:13:00 12/19/19 25 12/19/2024 LIPID CASCA DE LDL/HDL ratio 1.6 ratio 0.0-3. 2 LDL/H DL Ratio Men Women 1/2 Avg.R isk 1.0 1.5 Avg.R isk 3.6 3.2 2X Avg.R isk 6.2 5.0 3X Avg.R isk 8.0 6.1 Not Available [facility] ([facility]) [address] [place], [address], 12/19/2024 07:13:00 12/19/19 25 12/19/2024 LIPID CASCA DE non-HDL cholesterol 155 mg/dL 0-129 above high normal Not Available [facility] ([facility]) [address] [facility], [place], [address], 12/19/2024 07:13:00 12/19/19 25 12/19/2024 LIPID CASCA DE triglyceride s 109 mg/dL 0-149 Not Available [facility] ([facility]) [address] [facility], [place], [address], 12/19/2024 07:13:00 12/19/19 25 12/19/2024 LIPID CASCA DE LDL chol calc ([facility]) 136 mg/dL 0-99 above high normal Not Available [facility] ([facility]) [address] [facility], [place], [address], 12/19/2024 07:13:00 10/18/19 25 10/18/2024 MAMMO , scree lu, digit al, bilat eral No observ ation record ed. [facility] [address], [place], [address], 10/23/2024 17:10:05 11/16/19 25 11/15/2024 MAMMO , diagn ostic , unila teral No observ ation record ed. [facility] [address], [place], [address], 11/19/2024 17:17:09 Result Notes None recorded. Problems Name Problem SNOMED Code Status Onset Date Resolution Date Notes Provider Name and Address Organization Details Recorded Time Body mass index 20-24 - normal 667693014 Active 024 Gunner Jackson MA [facility], [place] - [facility] 4 11:47:26 History of polyp of colon 079153984 Active 024 EVE Carlin Attn: Accounting ,[address] [facility], [place], [address] , [facility] - [facility] 4 12:13:42 Problem Notes None recorded. Procedures Surgical History Date Name Laterality Status Provider Name and Address Organization Details Recorded Time Joint Replacement completed Gunner Jackson MA [facility] 08/20/2024 12:45:57 Imaging Results Imaging Date Name Status LastModified by Organiz ation Details LastModified Time 10/18/2024 MAMMO, screening, digital, bilateral completed [facility] [address], [place], [address], 10/23/2024 17:10:05 11/15/2024 MAMMO, diagnostic, unilateral completed [facility] [address], [place], [address], 11/19/2024 17:17:09 Procedure Notes None recorded. Medical Equipment None [...] Address Organization Details Last Updated DateTime 4 04106.9 3 g 18 /min 23.3 kg/m2 165.1 cm 97 % 97 % 68 /min 132 mm[Hg] 82 mm[Hg] Gunner Jackson MA [facility] 11:48:59 Date Recorded Systolic blood pressure Diastolic blood pressure Provider Name and Address Organization Details Last Updated DateTime 08/20/2024 140 mm[Hg] 90 mm[Hg] EVE Carlin Attn: Accounting,[address] [facility], [place], [address], [facility] 08/20/2024 12:19:07 Social History Question Answer Notes LastModified by Organizat ion Details LastModified Time Tobacco Smoking Status Former Smoker Gunner Jackson MA null, [facility] 08/20/2024 12:46:41 Do You Have An Advance Directive? No Will Information not available 08/20/2024 Are You Blind [...] Been Provided? No Information not available 08/20/2024 Sex: Female Functional Status Question Answer Note LastModified by Organizat ion Details LastModified Time Do you use any illicit or recreational drugs? No Information not available 08/20/2024 Do you or have you ever used any other forms of tobacco or nicotine? No Information not available 08/20/2024 What is your level of alcohol consumption? Occasional wine Information not available 08/20/2024 Are you able to care for yourself? Yes Information not available 08/20/2024 What is your exercise level? Occasional at home/walk ing Information not available 08/20/2024 Mental Status Question Answer Note LastModified by Organization D etails LastModified Time Do you feel stressed (tense, restless, nervous, or anxious, or unable to sleep at night)? [id number] Information not available 08/20/2024 Family History Relationship Description Onset Age of this Age Resolved Age Notes LastModified by Organization Details LastModified Time Mother Family history of breast cancer tcarterma Not available 2023 12:46:09 Brother Heart disease tcarterma Not available 2023 12:46:14 Father Hypertensive disorder tcarterma Not available 2023 12:46:20 Father Hypercholest erolemia tcarterma Not available 2023 12:46:25 Medical History Condition Response Coronary Artery Disease N Other N Atrial Fibrillation N High Blood Pressure N Kidney or Bladder Problems N Thyroid Problems N GI Problems N Depression N COPD N Blood Clots N Have you had a mammogram in the last yea r? N Skin Problems N Anemia N Heart Attack ([place]) N Anxiety Disorder N Diabetes N Muscle, [...] SNOMED-CT Code Diagnosis ICD10 Code Diagnosis Note [id number] Benjamin Mistry MD [facility] Shahram Archuleta [address] [place] [address] 08/20/2024 11:24:47 08/20/2024 13:02:47 Body mass index 20-24 - normal 694126789 Z68.23 BMI is 23.3 Viral uppe r respiratory tract infection 458330022 J06.9 Supportive care no new orders patient's exam is stable without acute concern Adult heal th examination 192675508 Z00.01 Annual wellness exam completed Cholesterol screening 27 8915441 Z13.220 Fasting lipid panel is due Long-term drug therapy 594765305 Z79.891 All routine lab work is ordered fasting Screening mammography 24 664175 Z12.31 Annual mammogram due History of polyp of colon 850545105 Z86.0100 Order for colonoscop y given history [...] - [employer] (MEDICARE REPLACEMENT/ ADVANTAGE - HMO) [id number] Idania Medrano [id number] Idania Medrano Notes Date Note Type Note Provider Name and Address Organization Details Recorded Time 08/20/2024 text/html Patient is here for her annual wellness exam reestablishing with healthcare provider at new office. She also happens to have some residual upper respiratory symptoms from a recent virus that she is improving from. She is interested in updated labs as well as a mammogram and she is due for a colonoscopy. She has a history of colon polyp. EVE Carlin Attn: Accounting,[address] [facility], [place], [address], [facility] 09/07/2024 21:57:06 OBGyn Episode No OBEpisode recorded.
[2025-01-28 06:40] VITALS: BMI 22.8
[2025-01-28 06:42] VITALS: BP 147/109; PULSE 73; RESP 18; TEMP 36.6; O2SAT 98
--- NOTE | 2025-01-28 06:55 | P.PNAN_ITS ---
Anes - Initial Pre Proc Eval Procedure: Operation Date: 01/28/25 08:00 Proposed Procedures p Diagnostic Colonoscopy - Yousif Arellano MD Date/Time: 01/28/25 06:55 Surgeon: Yousif Arellano MD Pre Op Diagnosis: HX of Colon Polyps Patient Data Age: 69 Gender: F Height: 1.65 m Weight: 62.2 kg Last Vital Signs Temp 36.6 C 01/28/25 06:42 Pulse 73 01/28/25 06:42 Resp 18 01/28/25 06:42 BP 147/109 H 01/28/25 06:42 Pulse Ox 98 01/28/25 06:42 O2 Del Method Room Air 01/28/25 06:42 Allergies Allergy/AdvReac Type Severity Reaction Status Date / Time No Known Allergies Allergy Verified 01/28/25 06:32 Home Medications Medication Instructions Recorded Confirmed Type rosuvastatin 10 mg tablet 10 mg PO HS 01/10/25 01/28/25 History Patient hx anesthesia problems: none Family hx anesthesia problems: none Results Review: All pre-operative results and documents have been reviewed as part of the pre-operative evaluation. [facility] Past Medical History Medical History (Updated 01/28/25 @ 07:08 by Luis Peters DO) Hyperlipidemia Surgical History Surgical History History of hip replacement 10/2015 Social History Social History Smoking status: Never smoker Alcohol intake: current Substance use: never Substance use type: does not use Anes - Eval Final PreProcedure Day of Procedure 01/28/25 06:55 Patient weight: normal Heart: regular rate and rhythm Lungs: clear to auscultation and normal air movement Airway: Mallampati scale class II Neurological: alert and oriented Last oral intake: >/= 8 hours ASA classification: II Emergent: no Anesthetic plan: proceed Anesthesia type and monitoring: general GIVS and standard monitoring Results Review: All pre-operative results and documents have been reviewed as part of the pre- operative evaluation. Informed Consent: The patient's anesthetic plan and its attendant risks and benefits were discussed with the patient/family/POA. Questions were solicited and answers provided to the satisfaction of the patient/family/POA.
[2025-01-28] MEDS: LACTATED RINGERS 1,000 ML 150 ML IV CONT (07:01)
[2025-01-28 08:05] VITALS: BP 139/94; PULSE 65; RESP 18
--- NOTE | 2025-01-28 08:06 | P.HP_ITS ---
H&P: HPI History of Present Illness Date/Time: 01/28/25 08:06 Chief Complaint: History of colon polyps Narrative: The patient has a history of colonic polyps, the last colonoscopy was 5 y ago. Review of Systems Review of Systems: All systems reviewed & are unremarkable except as noted in HPI and below [facility] Past Medical History Medical History (Updated 01/28/25 @ 08:07 by Yousif Arellano MD) Hyperlipidemia Surgical History Surgical History History of hip replacement 10/2015 Social History Social History Smoking status: Never smoker Alcohol intake: current Substance use: never Substance use type: does not use Meds Home Medications and Allergies Home Medications Medication Instructions Recorded Confirmed Type rosuvastatin 10 mg tablet 10 mg PO HS 01/10/25 01/28/25 History Allergies Allergy/AdvReac Type Severity Reaction Status Date / Time No Known Allergies Allergy Verified 01/28/25 06:32 Vital Signs Vital Signs - 24 hr 01/28/25 06:42 Temperature 97.8 F Pulse Rate 73 Respiratory Rate 18 Blood Pressure 147/109 H Pulse Oximetry 98 Oxygen Delivery Room Air Exam Const: General: cooperative and healthy appearing Resp: Effort & Inspection: normal respiratory effort and able to speak in complete sentences Auscultation: clear to auscultation bilaterally Cardio: Rate: regular rate Rhythm: regular rhythm GI: Inspection: normal to inspection GI Palp: No No hepatosplenomegaly present Auscultation: normal bowel sounds Rectal Exam: deferred Skin: General skin exam: normal color Psych: Appearance: grossly normal Mental Status: mental status grossly normal Assessment and Plan Assessment and plan (1) History of colonic polyps: Code(s): Z86.0100 - Personal history of colon polyps, unspecified Status: Acute Assessment and Plan: The patient is deemed a good candidate for the procedure. Consent signed. Will proceed.
--- NOTE | 2025-01-28 08:07 | SUR.PREOP ---
NOTIFIED DR ARROYO OF INITIAL BP AND RETAKE.
[2025-01-28 08:38] VITALS: BP 148/92; PULSE 70; RESP 14; O2SAT 96
[2025-01-28 08:48] VITALS: BP 143/92; PULSE 63; RESP 14; O2SAT 98
[2025-01-28 08:58] VITALS: BP 152/92; PULSE 61; RESP 16; O2SAT 100
--- NOTE | 2025-01-28 12:47 | WPDANESPN ---
Anes - Prog Note Post-Op Date/Time: 01/28/25 12:47 Cardiovascular status: normal Respiratory status: normal Airway patency: baseline Mental status: baseline Post-Op hydration status: normal Vital Signs: Last Vital Signs Temp 36.6 C 01/28/25 06:42 Pulse 61 01/28/25 08:58 Resp 16 01/28/25 08:58 BP 152/92 H 01/28/25 08:58 Pulse Ox 100 01/28/25 08:58 O2 Del Method Room Air 01/28/25 08:58 Pain Score (VAS): 0 I/O: Intake & Output 01/27/25 01/28/25 01/28/25 23:59 07:59 15:59 Intake Total 600 Balance 600 Post-procedural complaints: none Patient Feedback: Patient satisfied with anesthetic care. Other Findings: Patient vital signs back to baseline. Patient denies nausea and vomiting. Patient's pain under control. Patient OK for discharge.
== END 2025-01-28 09:09 | disposition home or self-care (01) ==
PROVIDERS: PCP Physician Assistant; Visit Provider Internal Medicine Gastroenterology
PROC: 0DJD8ZZ Inspection of Lower Intestinal Tract, Via Natural or Artificial Opening Endoscopic (ICD-10-PCS; CPT 45378; principal; 2025-01-28 08:00)
DX: Z12.11 Encounter for screening for malignant neoplasm of colon (principal); D12.2 Benign neoplasm of ascending colon; K63.5 Polyp of colon; K57.30 Diverticulosis of large intestine without perforation or abscess without bleeding
CPT/HCPCS: 45385

== ENCOUNTER 2025-01-28 08:03 | Outpatient (NON) | payer MEDICARE, SELFPAY ==
--- OUTSIDE RECORDS SUMMARY | 2025-01-29 08:07 | XMS_ITS | Clinical Summary ---
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
--- OUTSIDE RECORDS SUMMARY | 2025-01-29 08:08 | XMS_ITS | Data Portability ---
[facility] Address [address] [facility] [place] [address] Care Team Providers Care Plant Inspector Name Role Phone MAXIM MOJICA Primary Care Provider Unavailab le Assessment No assessment recorded. Plan of Treatment Reminders Order Date Submit Date Provider Last Modified By Organization Details Last Modified Time Details Appointments None recorded. Lab lipid panel, serum 2023 024 VILMA Tobias, [address], [place], [address], 4 09:08:25 CBC w/ auto diff 2023 024 VILMA Tobias, [address], [place], [address], 4 09:08:28 hepatic function panel, serum 2023 024 VILMA Tobias, [address], [place], [address], 4 09:08:26 BMP, serum or plasma 2023 024 VILMA Tobias, [address], [place], [address], 4 09:08:27 TSH + free T4, serum 2023 024 VILMA Tobias, [address], [place], [address], 4 09:08:23 Referral None recorded. Procedures colonoscopy procedure (PROC) - Previous Dr. Carvalho patient [email or web address] [facility], [address], [id number], [place], [address], 5 10:58:04 Surgeries None recorded. Imaging MAMMO, screening, digital, bilateral 2023 024 [email or web address], [address], [place], [address], 5 14:05:08 Medication Orders None recorded. Patient TargetsNo targets recorded. Patient InstructionsNo instructions recorded. Reason for Referral None Reported. Results Created Date Observation Date Name Description Value Unit Range Abnormal Flag Note LastModifiedBy Organization Detail LastModifiedTime 08/27/2008/28/2024 TSH+F REE T4 TSH 2.080 uIU/m L 0.450- 4.500 Not Available [facility] ([facility]) [address] [place], [address], 08/28/2024 09:08:23 08/27/20 24 08/28/2024 TSH+F REE T4 T4,free(dire ct) 1.13 NG/dL 0.82-1 .77 Not Available [facility] ([facility]) [address] [place], [address], 08/28/2024 09:08:23 08/27/20 24 08/28/2024 LIPID PANEL cholesterol, total 274 mg/dL 100-19 9 above high normal Not Available [facility] ([facility]) [address] [place], [address], 08/28/2024 09:08:25 08/27/20 24 08/28/2024 LIPID PANEL triglyceride s 93 mg/dL 0-149 Not Available [facility]) [address] [place], [address], 08/28/2024 09:08:25 08/27/20 24 08/28/2024 LIPID PANEL HDL cholesterol 84 mg/dL >39 Not Available [facility]) [address] [place], [address], 08/28/2024 09:08:25 08/27/20 24 08/28/2024 LIPID PANEL VLDL cholesterol riddhi 16 mg/dL 5-40 Not Available [facility]) [address] [facility], [place], [address], 08/28/2024 09:08:25 08/27/20 24 08/28/2024 LIPID PANEL LDL chol calc ([facility]) 174 mg/dL 0-99 above high normal Not Available [facility] ([facility]) [address] [place], [address], 08/28/2024 09:08:25 08/27/20 24 08/28/2024 HEPAT IC FUNCT ION PANEL (7) protein, total 7.1 g/dL 6.0-8. 5 Not Available [facility] ([facility]) [address] [place], [address], 08/28/2024 09:08:26 08/27/20 24 08/28/2024 HEPAT IC FUNCT ION PANEL (7) albumin 4.2 g/dL 3.9-4. 9 Not Available [facility] ([facility]) [address] [place], [address], 08/28/2024 09:08:26 08/27/20 24 08/28/2024 HEPAT IC FUNCT ION PANEL (7) bilirubin, total 0.3 mg/dL 0.0-1. 2 Not Available [facility] ([facility]) [address] [place], [address], 08/28/2024 09:08:26 08/27/20 24 08/28/2024 HEPAT IC FUNCT ION PANEL (7) bilirubin, direct 0.12 mg/dL 0.00-0 .40 Not Available [facility] ([facility]) [address] [facility] [place], [address], 08/28/2024 09:08:26 08/27/20 24 08/28/2024 HEPAT IC FUNCT ION PANEL (7) alkaline phosphatase 97 IU/L 44-121 Not Available [facility]) [address] [facility] [place], [address], 08/28/2024 09:08:26 08/27/20 24 08/28/2024 HEPAT IC FUNCT ION PANEL (7) AST (SGOT) 23 IU/L 0-40 Not Available [facility] ([facility]) [address] [facility] [place], [address], 08/28/2024 09:08:26 08/27/20 24 08/28/2024 HEPAT IC FUNCT ION PANEL (7) ALT (SGPT) 17 IU/L 0-32 Not Available [facility] ([facility]) [address] [facility] [place], [address], 08/28/2024 09:08:26 08/27/20 24 08/28/2024 BMP7+ EGFR glucose 94 mg/dL 70-99 Not Available [facility] ([facility]) [address] [facility] [place], [address], 08/28/2024 09:08:27 08/27/20 24 08/28/2024 BMP7+ EGFR BUN 11 mg/dL 8-27 Not Available [facility] ([facility]) [address] [facility] [place], [address], 08/28/2024 09:08:27 08/27/20 24 08/28/2024 BMP7+ EGFR creatinine 0.71 mg/dL 0.57-1 .00 Not Available [facility] ([facility]) [address] [facility] [place], [address], 08/28/2024 09:08:27 08/27/20 24 08/28/2024 BMP7+ EGFR eGFR 93 mL/mi n/1.7 3 >59 Not Available [facility] ([facility]) [address] [facility], [place], [address], 08/28/2024 09:08:27 08/27/20 24 08/28/2024 BMP7+ EGFR sodium 141 mmol/ L 134-14 4 Not Available [facility] ([facility]) [address] [facility], [place], [address], 08/28/2024 09:08:27 08/27/20 24 08/28/2024 BMP7+ EGFR potassium 4.4 mmol/ L 3.5-5. 2 Not Available [facility] ([facility]) [address] [facility], [place], [address], 08/28/2024 09:08:27 08/27/20 24 08/28/2024 BMP7+ EGFR chloride 101 mmol/ L 96-106 Not Available [facility] ([facility]) [address] [facility], [place], [address], 08/28/2024 09:08:27 08/27/20 24 08/28/2024 BMP7+ EGFR carbon dioxide, total 26 mmol/ L 20-29 Not Available [facility] ([facility]) [address] [facility], [place], [address], 08/28/2024 09:08:27 08/27/20 24 08/28/2024 CBC WITH DIFFE RENTI AL/PL ATELE T WBC 5.6 x10e3 /uL 3.4-10 .8 Not Available [facility] ([facility]) [address] [facility], [place], [address], 08/28/2024 09:08:28 08/27/20 24 08/28/2024 CBC WITH DIFFE RENTI AL/PL ATELE T RBC 4.25 x10e6 /uL 3.77-5 .28 Not Available [facility] ([facility]) [address] [place], [address], 08/28/2024 09:08:28 08/27/20 24 08/28/2024 CBC WITH DIFFE RENTI AL/PL ATELE T hemoglobin 14.3 g/dL 11.1-1 5.9 Not Available [facility] ([facility]) [address] [place], [address], 08/28/2024 09:08:28 08/27/20 24 08/28/2024 CBC WITH DIFFE RENTI AL/PL ATELE T hematocrit 42.2 % 34.0-4 6.6 Not Available [facility] ([facility]) [address] [facility], [place], [address], 08/28/2024 09:08:28 08/27/20 24 08/28/2024 CBC WITH DIFFE RENTI AL/PL ATELE T MCV 99 fL 79-97 above high normal Not Available [facility] ([facility]) [address] [place], [address], 08/28/2024 09:08:28 08/27/20 24 08/28/2024 CBC WITH DIFFE RENTI AL/PL ATELE T MCH 33.6 pg 26.6-3 3.0 above high normal Not Available [facility] ([facility]) [address] [place], [address], 08/28/2024 09:08:28 08/27/20 24 08/28/2024 CBC WITH DIFFE RENTI AL/PL ATELE T MCHC 33.9 g/dL 31.5-3 5.7 Not Available [facility] ([facility]) [address] [place], [address], 08/28/2024 09:08:28 08/27/20 24 08/28/2024 CBC WITH DIFFE RENTI AL/PL ATELE T RDW 11.2 % 11.7-1 5.4 below low normal Not Available [facility] ([facility]) [address] [facility], [place], [address], 08/28/2024 09:08:28 08/27/20 24 08/28/2024 CBC WITH DIFFE RENTI AL/PL ATELE T platelets 290 x10e3 /uL 150-45 0 Not Available [facility] ([facility]) [address] [facility], [place], [address], 08/28/2024 09:08:28 08/27/20 24 08/28/2024 CBC WITH DIFFE RENTI AL/PL ATELE T neutrophils 42 % notest ab. Not Available [facility] ([facility]) [address] [facility], [place], [address], 08/28/2024 09:08:28 08/27/20 24 08/28/2024 CBC WITH DIFFE RENTI AL/PL ATELE T lymphs 44 % notest ab. Not Available [facility] ([facility]) [address] [facility], [place], [address], 08/28/2024 09:08:28 08/27/20 24 08/28/2024 CBC WITH DIFFE RENTI AL/PL ATELE T monocytes 11 % notest ab. Not Available [facility] ([facility]) [address] [facility], [place], [address], 08/28/2024 09:08:28 08/27/20 24 08/28/2024 CBC WITH DIFFE RENTI AL/PL ATELE T eos 3 % notest ab. Not Available [facility] ([facility]) [address] [place], [address], 08/28/2024 09:08:28 08/27/20 24 08/28/2024 CBC WITH DIFFE RENTI AL/PL ATELE T basos 0 % notest ab. Not Available [facility] ([facility]) [address] [facility], [place], [address], 08/28/2024 09:08:28 08/27/20 24 08/28/2024 CBC WITH DIFFE RENTI AL/PL ATELE T neutrophils (absolute) 2.4 x10e3 /uL 1.4-7. 0 Not Available [facility] ([facility]) [address] [facility], [place], [address], 08/28/2024 09:08:28 08/27/20 24 08/28/2024 CBC WITH DIFFE RENTI AL/PL ATELE T lymphs (absolute) 2.5 x10e3 /uL 0.7-3. 1 Not Available [facility] ([facility]) [address] [facility], [place], [address], 08/28/2024 09:08:28 08/27/20 24 08/28/2024 CBC WITH DIFFE RENTI AL/PL ATELE T monocytes(ab solute) 0.6 x10e3 /uL 0.1-0. 9 Not Available [facility] ([facility]) [address] [facility], [place], [address], 08/28/2024 09:08:28 08/27/20 24 08/28/2024 CBC WITH DIFFE RENTI AL/PL ATELE T eos (absolute) 0.2 x10e3 /uL 0.0-0. 4 Not Available [facility] ([facility]) [address] [facility], [place], [address], 08/28/2024 09:08:28 08/27/20 24 08/28/2024 CBC WITH DIFFE RENTI AL/PL ATELE T baso (absolute) 0.0 x10e3 /uL 0.0-0. 2 Not Available [facility] ([facility]) [address] [facility], [place], [address], 08/28/2024 09:08:28 08/27/20 24 08/28/2024 CBC WITH DIFFE RENTI AL/PL ATELE T immature granulocytes 0 % notest ab. Not Available [facility] ([facility]) [address] [facility] [place], [address], 08/28/2024 09:08:28 08/27/20 24 08/28/2024 CBC WITH DIFFE RENTI AL/PL ATELE T immature grans (abs) 0.0 x10e3 /uL 0.0-0. 1 Not Available [facility] ([facility]) [address] [facility], [place], [address], 08/28/2024 09:08:28 12/19/19 25 12/19/2024 HEPAT IC FUNCT ION PANEL (7) protein, total 7.5 g/dL 6.0-8. 5 Not Available [facility] ([facility]) [address] [facility], [place], [address], 12/19/2024 07:12:59 12/19/19 25 12/19/2024 HEPAT IC FUNCT ION PANEL (7) albumin 4.5 g/dL 3.9-4. 9 Not Available [facility] ([facility]) [address] [facility] [place], [address], 12/19/2024 07:12:59 12/19/19 25 12/19/2024 HEPAT IC FUNCT ION PANEL (7) bilirubin, total 0.5 mg/dL 0.0-1. 2 Not Available [facility] ([facility]) [address] [facility] [place], [address], 12/19/2024 07:12:59 12/19/19 25 12/19/2024 HEPAT IC FUNCT ION PANEL (7) bilirubin, direct 0.16 mg/dL 0.00-0 .40 Not Available [facility] ([facility]) [address] [facility] [place], [address], 12/19/2024 07:12:59 12/19/19 25 12/19/2024 HEPAT IC FUNCT ION PANEL (7) alkaline phosphatase 88 IU/L 44-121 Not Available [facility] ([facility]) [address] [place], [address], 12/19/2024 07:12:59 12/19/19 25 12/19/2024 HEPAT IC FUNCT ION PANEL (7) AST (SGOT) 23 IU/L 0-40 Not Available [facility] ([facility]) [address] [facility] [place], [address], 12/19/2024 07:12:59 12/19/19 25 12/19/2024 HEPAT IC FUNCT ION PANEL (7) ALT (SGPT) 17 IU/L 0-32 Not Available [facility] ([facility]) [address] [place], [address], 12/19/2024 07:12:59 12/19/19 25 12/19/2024 LIPID CASCA DE cholesterol, total 239 mg/dL 100-19 9 above high normal Not Available [facility] ([facility]) [address] [place], [address], 12/19/2024 07:13:00 12/19/19 25 12/19/2024 LIPID CASCA DE HDL cholesterol 84 mg/dL >39 Not Available [facility] ([facility]) [address] [place], [address], 12/19/2024 07:13:00 12/19/19 25 12/19/2024 LIPID CASCA DE LDL/HDL ratio 1.6 ratio 0.0-3. 2 LDL/H DL Ratio Men Women 1/2 Avg.R isk 1.0 1.5 Avg.R isk 3.6 3.2 2X Avg.R isk 6.2 5.0 3X Avg.R isk 8.0 6.1 Not Available [facility] ([facility]) [address] [place], [address], 12/19/2024 07:13:00 04/08/12/19/2024 LIPID CASCA DE non-HDL cholesterol 155 mg/dL 0-129 above high normal Not Available [facility] ([facility]) [address] [place], [address], 12/19/2024 07:13:00 12/19/19 25 12/19/2024 LIPID CASCA DE triglyceride s 109 mg/dL 0-149 Not Available [facility] ([facility] [address] [place], [address], 12/19/2024 07:13:00 12/19/19 25 12/19/2024 LIPID CASCA DE LDL chol calc ([facility]) 136 mg/dL 0-99 above high normal Not Available [facility] ([facility]) [address] [place], [address], 12/19/2024 07:13:00 10/18/19 25 10/18/2024 MAMMO , scree lu, digit al, bilat eral No observ ation record ed. [facility] [address], [place], [address], 10/23/2024 17:10:05 11/16/19 25 11/15/2024 MAMMO , diagn ostic , unila teral No observ ation record ed. [facility] [address], [place], [address], 11/19/2024 17:17:09 Result Notes None recorded. Problems Name Problem SNOMED Code Status Onset Date Resolution Date Notes Provider Name and Address Organization Details Recorded Time Body mass index 20-24 - normal 253295984 Active 024 Gunner Jackson MA [facility], [place] - [place] 4 11:47:26 History of polyp of colon 974015832 Active 024 EVE Carlin Attn: Accounting ,[address] [facility], [place], [address] , [facility] - [facility] 4 12:13:42 Problem Notes None recorded. Procedures Surgical History Date Name Laterality Status Provider Name and Address Organization Details Recorded Time Joint Replacement completed Gunner Jackson MA [facility] 08/20/2024 12:45:57 Imaging Results Imaging Date Name Status LastModified by Organiz ation Details LastModified Time 10/18/2024 MAMMO, screening, digital, bilateral completed [facility] [address], [place], [address], 10/23/2024 17:10:05 11/15/2024 MAMMO, diagnostic, unilateral completed [facility] [address], [place], [address], 11/19/2024 17:17:09 Procedure Notes None recorded. Medical [...] Address Organization Details Last Updated DateTime 4 [address]174.9 3 g 18 /min 23.3 kg/m2 165.1 cm 97 % 97 % 68 /min 132 mm[Hg] 82 mm[Hg] Gunner Jackson MA [facility] 11:48:59 Date Recorded Systolic blood pressure Diastolic blood pressure Provider Name and Address Organization Details Last Updated DateTime 08/20/2024 140 mm[Hg] 90 mm[Hg] EVE Carlin Attn: Accounting,[address] [facility], [place], [address], [facility] 08/20/2024 12:19:07 Social History Question Answer Notes LastModified by Organizat ion Details LastModified Time Tobacco Smoking Status Former Smoker Gunner Jackson MA null, [facility] 08/20/2024 12:46:41 Do You Have An [...] anxious, or unable to sleep at night)? [id number] Information not available 08/20/2024 Family History Relationship [...] Atrial Fibrillation N High Blood Pressure N Depression N COPD N Blood Clots N Anxiety Disorder N Muscle, Joint, or Bone Problems N Acid Reflux (GERD) N Cancer N Stroke N High Cholesterol N Liver Disease N Headaches N Kidney or Bladder Problems N Thyroid Problems N GI Problems N Have you had a mammogram in the last yea r? N Skin Problems N Anemia N Heart Attack (MD) N Diabetes N Seizures/Epilepsy N Have you had a colonoscopy in the last 1 0 years? N Asthma N Allergies N Have you had a PSA blood test in the las t year? N Hepatitis N Heart Failure N Osteoporosis N Gynecological HistoryNo gynecological history recorded. Obstetrics History GPAL:G 0 P 0 0 0 0 Past Encounters Encounter ID Performer Location Encounter Start Date Encounter Closed Date Diagnosis/Indication Diagnosis SNOMED-CT Code Diagnosis ICD10 Code Diagnosis Note [id number] Benjamin Mistry MD [facility]ule[facility] [address] [place] [address] 08/20/2024 11:24:47 08/20/2024 13:02:47 Body mass index 20-24 - normal 613304055 Z68.23 BMI is 23.3 Viral uppe r respiratory tract infection 324630439 J06.9 Supportive care no new orders patient's exam is stable without acute concern Adult heal th examination 927845170 Z00.01 Annual wellness exam completed Cholesterol screening 27 7526827 Z13.220 Fasting lipid panel is due Long-term drug therapy 908355294 Z79.891 All routine lab work is ordered fasting Screening mammography 24 951124 Z12.31 Annual mammogram due History of polyp of colon 834555123 Z86.0100 Order for colonoscop y given history [...] - [employer]IME (MEDICARE REPLACEMENT/ ADVANTAGE - HMO) [id number] Idania Medrano [id number] Idania Medrano Notes Date Note Type Note [...] colon polyp. EVE Carlin Attn: Accounting,[address] [facility], [place], [address], [facility] 09/07/2024 21:57:06 OBGyn Episode No OBEpisode recorded.
== END 2025-01-28 08:04 | disposition home or self-care (01) ==
LOC: ANHLAB 01-29 08:04
PROVIDERS: PCP Physician Assistant; Visit Provider Internal Medicine Gastroenterology
DX: Z12.11 Encounter for screening for malignant neoplasm of colon (principal); Z86.0100 Personal history of colon polyps, unspecified
CPT/HCPCS: 88305